=== PATIENT | female | born 1950 | race Caucasian/White ===

== ENCOUNTER 2023-06-28 12:28 | Emergency (ER) | payer MEDICARE, BC ==
[~2023-06-28] VITALS: Ht 160 cm; Wt 62.0 kg
[~2023-06-28 12:28] MED LIST: BENZONATATE200 MG PO; MEDDOSEPAK PO; ZITHROMAX250 MG PO; ZOFRAN4 MG/TAB PO
[2023-06-28 13:02] LABS: URINE BILIRUBIN - DIPSTICK Negative (NEGATIVE); URINE BLOOD DIPSTICK Negative (NEGATIVE); URINE GLUCOSE - DIPSTICK Negative (NEGATIVE); URINE KETONE Negative (NEGATIVE); URINE LEUK ESTERASE Negative (NEGATIVE); URINE NITRITE - DIPSTICK Negative (Negative); URINE PROTEIN - DIPSTICK Negative (NEG-TRACE); URINE SPECIFIC GRAVITY 1.015; URINE UROBILINOGEN - DIPSTICK 0.2 E.U./dL (0.2)
[2023-06-28 13:04] LABS: URINE COLOR Yellow
[2023-06-28 13:18] LABS: BASO% 0.7 % (0-3); EOS% 2.2 % (0-8); HEMATOCRIT 41.7 % (37.0-47.0); HEMOGLOBIN 13.6 g/dl (12.0-16.0); IMMATURE GRANULOCYTES 0.5 % (0.0-5.0); MEAN CELL VOLUME 85.5 fL CALC (80.0-100.0); MEAN CORPUSCULAR HGB 27.9 pG CALC (26.0-32.0); MEAN CORPUSCULAR HGB CONC 32.6 g/dL CAL (32.0-36.0); MONO% 6.7 % (2-13); NEUT# 7.55 thou/uL (2.00-7.15); NEUT% 73.9 % (42-76); RED BLOOD COUNT 4.88 mill/uL (4.20-5.60); RED CELL DISTRI WIDTH 15.3 % (11.5-15.5)
[2023-06-28 13:38] LABS: ALBUMIN 4.4 g/dL (3.2-5.0); ALKALINE PHOSPHATASE 121 u/l (38-126); ANION GAP 12 (6-22 (CALC)); BILIRUBIN, TOTAL 0.8 mg/dL (0.02-1.3); BUN 19 mg/dL (8-23); BUN/CREATININE RATIO 21 (12-20 (CALC)); CARBON DIOXIDE 24 mmol/l (22-30); CHLORIDE 103 mmol/l (95-108); GFR FOR AFR.AMER. > 60 ML/MIN (>=60 (CALC)); GFR OTHER RACES 55 ML/MIN (>=60 (CALC)); POTASSIUM 4.2 mmol/l (3.5-5.1); SGOT/AST 31 u/l (9-36); TOTAL PROTEIN 7.7 g/dL (6.3-8.2)
[2023-06-28 14:13] LABS: SODIUM 135 mmol/l (137-146)
[2023-06-28] MEDS ORDERED: METRONIDAZOLE500 MG PO (14:20)
[2023-06-28 14:55] VITALS: BP 130/84
== END 2023-06-28 15:07 | disposition home or self-care (01) ==
LOC: ED 12:28
PROVIDERS: Nurse Practitioner
DX: R30.0 Dysuria (principal)